=== PATIENT | female | born 1980 | race Caucasian/White ===

== ENCOUNTER 2017-09-16 09:11 | Emergency (ER) | payer OTHER ==
[~2017-09-16] VITALS: Ht 167.6 cm; Wt 93.2 kg
[2017-09-16 09:38] LABS: GLUCOSE,POINT OF CARE 157 MG/DL (70-110)
[2017-09-16 10:00] LABS: AMPHET/METH SCREEN,URINE NEGATIVE (NEGATIVE); BARBITURATE SCREEN, URINE NEGATIVE (NEGATIVE); BENZODIAZEPINES SCREEN,URINE NEGATIVE (NEGATIVE); CANNABINOID SCREEN,URINE POSITIVE (NEGATIVE); COCAINE SCREEN,URINE NEGATIVE (NEGATIVE); METHADONE SCREEN, URINE NEGATIVE (NEGATIVE); OPIATE SCREEN,URINE NEGATIVE (NEGATIVE)
[2017-09-16 10:01] LABS: PHENCYCLIDINE SCREEN,URINE NEGATIVE (NEGATIVE)
[2017-09-16 10:12] LABS: ANION GAP 13 mmol/L (8-16); BASOPHILS % (AUTO) 0.5 % (0.0-2.0); CARBON DIOXIDE 23 mmol/L (22-29); CHLORIDE 105 mmol/L (98-107); EOSINOPHILS % (AUTO) 2.1 % (1.0-6.0); GLOMERULAR FILTR. RATE CALC > 60 mL/min (>60); GLUCOSE,RANDOM 159 mg/dL (70-110); HEMATOCRIT 40.7 % (36-46); HEMOGLOBIN 14.1 g/dL (12.0-16.0); LYMPHOCYTES # (AUTO) 2.1 K/uL (1.0-4.8); LYMPHOCYTES % (AUTO) 26.3 % (22.0-44.0); MEAN CORPUSCULAR HEMOGLOBIN 31.7 pg (26.0-34.0); MEAN CORPUSCULAR HGB CONC 34.7 G/dL (31.0-37.0); MEAN CORPUSCULAR VOLUME 91 fL (80-100); MONOCYTES # (AUTO) 0.5 K/uL (0.1-1.0); MONOCYTES % (AUTO) 6.9 % (2.0-9.0); NEUTROPHILS # (AUTO) 5.1 K/uL (1.8-7.7); NEUTROPHILS % (AUTO) 64.2 % (40.0-70.0); PLATELET COUNT (AUTO) 365 K/uL (150-450); POTASSIUM 3.8 mmol/L (3.5-5.1); RED BLOOD CELL COUNT(AUTO) 4.45 MIL/uL (4.00-5.20); RED CELL DISTRIBUTION WIDTH 12.3 % (11.5-14.5); SODIUM SERUM 141 mmol/L (136-145); UREA NITROGEN, BLOOD 11 mg/dL (7-18)
[2017-09-16 10:17] LABS: ALANINE AMINOTRANSFERASE 28 U/L (12-78); ALBUMIN 3.7 g/dL (3.4-5.0); ALKALINE PHOSPHATASE 79 U/L (46-116); ASPARTATE AMINOTRANSFERASE 21 U/L (15-37); BILIRUBIN,TOTAL 1.3 mg/dL (0.1-1.0); TOTAL PROTEIN, SERUM 7.4 g/dL (6.4-8.2)
[2017-09-16 12:10] VITALS: BP 142/84
== END 2017-09-16 12:34 | disposition home or self-care (01) ==
LOC: EMS 09:13
DX: F31.9 Bipolar disorder, unspecified (principal); E11.9 Type 2 diabetes mellitus without complications; Z90.49 Acquired absence of other specified parts of digestive tract; Z98.890 Other specified postprocedural states
CPT/HCPCS: 36415; 80053; 80307; 82962; 85025; 99284; G0480

== ENCOUNTER 2023-03-16 22:12 | Inpatient (IN) | payer MEDICAID, OTHER ==
[~2023-03-16] VITALS: Ht 167.6 cm; Wt 83.6 kg
[2023-03-16 23:14] LABS: BASOPHILS % (AUTO) 0.9 % (0.0-2.0); EOSINOPHILS % (AUTO) 1.6 % (1.0-6.0); HEMATOCRIT 38.7 % (36-46); LYMPHOCYTES # (AUTO) 1.2 K/uL (1.0-4.8); LYMPHOCYTES % (AUTO) 16.7 % (22.0-44.0); MEAN CORPUSCULAR HEMOGLOBIN 32.3 pg (26.0-34.0); MEAN CORPUSCULAR HGB CONC 33.6 G/dL (31.0-37.0); MEAN CORPUSCULAR VOLUME 96 fL (80-100); MONOCYTES # (AUTO) 0.4 K/uL (0.1-1.0); MONOCYTES % (AUTO) 5.2 % (2.0-9.0); NEUTROPHILS # (AUTO) 5.4 K/uL (1.8-7.7); NEUTROPHILS % (AUTO) 75.6 % (40.0-70.0); PLATELET COUNT (AUTO) 361 K/uL (150-450); RED BLOOD CELL COUNT(AUTO) 4.03 MIL/uL (4.00-5.20); RED CELL DISTRIBUTION WIDTH 12.3 % (11.5-14.5); WHITE BLOOD COUNT (AUTO) 7.2 K/uL (4.5-11.0)
[2023-03-16 23:28] LABS: ANION GAP 12 mmol/L (8-16); CALCIUM, TOTAL 8.5 mg/dL (8.8-10.5); CARBON DIOXIDE 24 mmol/L (22-29); CHLORIDE 102 mmol/L (98-107); CREATININE 0.62 mg/dL (0.60-1.30); GLOMERULAR FILTR. RATE CALC > 60 mL/min (>60); GLUCOSE,RANDOM 98 mg/dL (70-110); POTASSIUM 3.9 mmol/L (3.5-5.1); SODIUM SERUM 138 mmol/L (136-145); UREA NITROGEN, BLOOD 8 mg/dL (7-18)
[2023-03-16 23:34] LABS: ACETAMINOPHEN < 2 mcg/mL (10-30); ALANINE AMINOTRANSFERASE 18 U/L (12-78); ALBUMIN 3.2 g/dL (3.4-5.0); ALKALINE PHOSPHATASE 136 U/L (46-116); ASPARTATE AMINOTRANSFERASE 18 U/L (15-37); BILIRUBIN,TOTAL 1.3 mg/dL (0.1-1.0); TOTAL PROTEIN, SERUM 6.3 g/dL (6.4-8.2)
[2023-03-16 23:49] LABS: ALCOHOL, BLOOD (SERUM) < 3 mg/dL (0-10)
[2023-03-16 23:55] LABS: SALICYLATE < 0.2 mg/dL (2.8-20.0)
[2023-03-17] MEDS ORDERED: ZOLPIDEM TARTRATE 10 MG TABLET PO PRN (01:15)
[2023-03-17] MEDS ORDERED: HALOPERIDOL 5 MG TABLET PO PRN (01:15)
[2023-03-17] MEDS ORDERED: LORazepam 2 MG TABLET PO PRN (01:15)
[2023-03-17 02:00] LABS: COVID AG,FIA SOURCE NASOPHARYNGEAL
[2023-03-17 02:04] LABS: SARS-COV2 (COVID) ANTIGEN,FIA Negative (Negative)
[2023-03-17] MEDS ORDERED: ACETAMINOPHEN 500 MG TABLET PO ONE (02:15)
[2023-03-17 04:05] VITALS: BP 115/77; PULSE 95; RESP 18; TEMP 98.2; O2SAT 97
[2023-03-17 04:20] LABS: APPEARANCE,URINE HAZY (CLEAR); BILIRUBIN,URINE NEGATIVE (NEGATIVE); COLOR,URINE YELLOW (YELLOW); GLUCOSE, URINE (UA) 70-100 mg/dL (NEGATIVE); KETONES,URINE NEGATIVE (NEGATIVE); LEUKOCYTE ESTERASE ,URINE SMALL (NEGATIVE); NITRATE,URINE NEGATIVE (NEGATIVE); OCCULT BLOOD,URINE NEGATIVE (NEGATIVE); PH,URINE 5.5 (5.0-8.0); PH,URINE DRUG SCREEN 5.5 (5.0-8.0); PROTEIN,URINE TRACE mg/dL (NEGATIVE); SPECIFIC GRAVITIY, URINE 1.025 (1.003-1.030); UROBILINOGEN,URINE <=1.0 mg/dL (<=1.0)
[2023-03-17 04:25] LABS: ALCOHOL, URINE DRUG SCREEN NEGATIVE (NEGATIVE); AMPHET/METH SCREEN,URINE POSITIVE (NEGATIVE); BARBITURATE SCREEN, URINE NEGATIVE (NEGATIVE); BENZODIAZEPINES SCREEN,URINE NEGATIVE (NEGATIVE); CANNABINOID SCREEN,URINE NEGATIVE (NEGATIVE); COCAINE SCREEN,URINE NEGATIVE (NEGATIVE); METHADONE SCREEN, URINE NEGATIVE (NEGATIVE); OPIATE SCREEN,URINE NEGATIVE (NEGATIVE); PHENCYCLIDINE SCREEN,URINE NEGATIVE (NEGATIVE)
[2023-03-17 05:04] LABS: BACTERIA,URINE Rare /HPF (None Seen); CALCIUM OXALATE CRYSTALS,UR Few /LPF (None Seen); RBC,URINE 0-2 /HPF (0-2); SQUAMOUS EPITHELIAL CELL,UR Few /LPF (None Seen)
[2023-03-17] MEDS ORDERED: PNEUMOCOCCAL VACCINE POLYVALENT 0.5 ML SYRINGE [PPSV23] IM. ONE (05:15)
[2023-03-17 06:37] LABS: GLUCOMETER DEV NAME(LOC) BV2X.2; GLUCOSE,POINT OF CARE 89 MG/DL (70-110)
[2023-03-17 09:03] VITALS: BP 109/61; PULSE 89; RESP 18; TEMP 97.8; O2SAT 98
[2023-03-17] MEDS ORDERED: TUBERCULIN, PURIFIED PROTEIN DERIVATIVE 5 TU/0.1 ML SYRINGE ID ONE (10:45)
[2023-03-17] MEDS ORDERED: PROMETHAZINE HCL 25 MG TABLET PO PRN (10:45)
[2023-03-17] MEDS ORDERED: MAGNESIUM HYDROXIDE SUSPENSION 30 ML UDCUP PO PRN ×2 (10:45→13:30)
[2023-03-17] MEDS ORDERED: LOPERAMIDE HCL 2 MG CAPSULE PO PRN ×2 (10:45→13:30)
[2023-03-17] MEDS ORDERED: MAG HYDROX/AL HYDROX/SIMETH ES 30 ML SUSPENSION UDCUP PO PRN ×2 (10:45→13:30)
[2023-03-17] MEDS ORDERED: GuaiFENesin/D-METHORPHAN [SUGAR-FREE] 200-20MG/10 ML SYRUP UDCUP PO PRN ×2 (10:45→13:30)
[2023-03-17] MEDS: GABAPENTIN 300 MG CAPSULE PO PRN (11:43)
[2023-03-17] MEDS: HydrOXYzine PAMOATE 50 MG CAPSULE PO PRN (11:43)
[2023-03-17] MEDS ORDERED: ALBUTEROL SULFATE HFA 90 MCG/PUFF 8 GM INHALER IH PRN (13:30)
[2023-03-17] MEDS ORDERED: DOCUSATE SODIUM 100 MG CAPSULE PO PRN (13:30)
[2023-03-17] MEDS ORDERED: ACETAMINOPHEN 325 MG TABLET PO PRN (13:30)
[2023-03-17] MEDS ORDERED: CloNIDine HCL 0.1 MG TABLET PO PRN (13:30)
[2023-03-17] MEDS ORDERED: IBUPROFEN 400 MG TABLET PO PRN (13:30)
[2023-03-17] MEDS ORDERED: NICOTINE 14 MG/24 HOUR PATCH TD PRN (13:30)
[2023-03-17] MEDS ORDERED: PETROLATUM,WHITE 28 GM JELLY TP PRN (13:30)
[2023-03-17] MEDS: THIAMINE 100 MG TABLET PO SCH (16:26)
[2023-03-17] MEDS ORDERED: OLANZapine 5 MG RAPDIS TABLET PO PRN (17:15)
[2023-03-17 17:18] VITALS: BP 109/61; PULSE 89; RESP 18; TEMP 97.8; O2SAT 98
[2023-03-17] MEDS ORDERED: OLANZapine 5 MG RAPDIS TABLET PO SCH (21:00)
[2023-03-17] MEDS: MELATONIN 5 MG TABLET PO SCH ×2 (21:00→21:11)
[2023-03-17] MEDS: BREXPIPRAZOLE 1 MG TABLET PO SCH (21:23)
[2023-03-18 00:55] VITALS: RESP 18
[2023-03-18 00:57] VITALS: RESP 18
[2023-03-18] MEDS: LITHIUM CARBONATE 300 MG CAPSULE PO SCH ×3 (06:35→17:00)
[2023-03-18] MEDS: NALTREXONE HCL 50 MG TABLET PO SCH (08:46)
[2023-03-18] MEDS: ACETAMINOPHEN 325 MG TABLET PO PRN ×3 (08:47→19:30)
[2023-03-18] MEDS: FOLIC ACID 1 MG TABLET PO SCH (08:47)
[2023-03-18] MEDS: HydrOXYzine PAMOATE 50 MG CAPSULE PO PRN (08:47)
[2023-03-18] MEDS: THIAMINE 100 MG TABLET PO SCH ×2 (08:47→17:02)
[2023-03-18] MEDS: BuPROPion HCL XL 150 MG ER TABLET PO SCH (08:47)
[2023-03-18] MEDS: MULTIVITAMINS WITH MINERALS, THERAPEUTIC TABLET PO SCH (08:47)
[2023-03-18] MEDS: LamoTRIgine 100 MG TABLET PO SCH ×2 (08:47→17:02)
[2023-03-18] MEDS: OMEGA-3/DHA/EPA/FISH OIL 1,000 MG CAPSULE PO SCH (08:48)
[2023-03-18] MEDS ORDERED: LamoTRIgine 25 MG TABLET PO SCH (09:00)
[2023-03-18] MEDS ORDERED: FLUoxetine HCL 20 MG CAPSULE PO SCH (09:00)
[2023-03-18 09:04] LABS: HEMOGLOBIN A1C 5.5 % (3.8-5.6)
[2023-03-18 09:30] LABS: CHOL/HDL RATIO 2.6 (3.9-5.7); FREE T4 (FREE THYROXINE) 0.81 ng/dL (0.76-1.46); THYROID STIMULATING HORMONE 0.27 uIU/mL (0.36-3.74)
[2023-03-18 09:51] VITALS: BP 113/73; PULSE 79; RESP 20; TEMP 97.7; O2SAT 98
[2023-03-18 14:48] VITALS: RESP 18; O2SAT 98
[2023-03-18] MEDS: GABAPENTIN 300 MG CAPSULE PO PRN (19:30)
[2023-03-18] MEDS: MELATONIN 5 MG TABLET PO SCH (20:04)
[2023-03-18] MEDS: BREXPIPRAZOLE 1 MG TABLET PO SCH (20:05)
[2023-03-18 20:45] VITALS: BP 119/75; PULSE 96; RESP 18; TEMP 98.1; O2SAT 98
[2023-03-19] MEDS: ACETAMINOPHEN 325 MG TABLET PO PRN (04:40)
[2023-03-19 04:41] VITALS: RESP 18
[2023-03-19 04:42] VITALS: BP 121/79; PULSE 98; RESP 18; TEMP 97.8; O2SAT 98
[2023-03-19 05:37] VITALS: RESP 18
[2023-03-19] MEDS: LITHIUM CARBONATE 300 MG CAPSULE PO SCH ×3 (06:31→16:31)
[2023-03-19 08:55] VITALS: BP 138/59; PULSE 78; RESP 18; TEMP 97.8; O2SAT 96
[2023-03-19] MEDS: FOLIC ACID 1 MG TABLET PO SCH (09:43)
[2023-03-19] MEDS: OMEGA-3/DHA/EPA/FISH OIL 1,000 MG CAPSULE PO SCH (09:43)
[2023-03-19] MEDS: BuPROPion HCL XL 150 MG ER TABLET PO SCH (09:43)
[2023-03-19] MEDS: MULTIVITAMINS WITH MINERALS, THERAPEUTIC TABLET PO SCH (09:43)
[2023-03-19] MEDS: NALTREXONE HCL 50 MG TABLET PO SCH (09:43)
[2023-03-19] MEDS: LamoTRIgine 100 MG TABLET PO SCH ×2 (09:44→16:31)
[2023-03-19] MEDS: THIAMINE 100 MG TABLET PO SCH ×2 (09:44→16:31)
[2023-03-19] MEDS: ONDANSETRON HCL 4 MG TABLET PO PRN (14:25)
[2023-03-19] MEDS: BREXPIPRAZOLE 1 MG TABLET PO SCH (20:50)
[2023-03-19] MEDS: MELATONIN 5 MG TABLET PO SCH (20:50)
[2023-03-19 21:01] VITALS: BP 121/79; PULSE 82; RESP 17; TEMP 97.8; O2SAT 97
[2023-03-20 02:02] VITALS: BP 130/83; PULSE 82; RESP 18; TEMP 97.7; O2SAT 97
[2023-03-20] MEDS: ONDANSETRON HCL 4 MG TABLET PO PRN (02:10)
[2023-03-20] MEDS: ACETAMINOPHEN 325 MG TABLET PO PRN (02:12)
[2023-03-20] MEDS ORDERED: OMEPRAZOLE 20 MG CAPSULE PO SCH (06:30)
[2023-03-20] MEDS: LITHIUM CARBONATE 300 MG CAPSULE PO SCH ×3 (06:51→16:16)
[2023-03-20] MEDS: LamoTRIgine 100 MG TABLET PO SCH ×2 (09:12→16:15)
[2023-03-20] MEDS: OMEGA-3/DHA/EPA/FISH OIL 1,000 MG CAPSULE PO SCH (09:12)
[2023-03-20] MEDS: THIAMINE 100 MG TABLET PO SCH ×2 (09:12→16:15)
[2023-03-20] MEDS: FOLIC ACID 1 MG TABLET PO SCH (09:12)
[2023-03-20] MEDS: HydrOXYzine PAMOATE 50 MG CAPSULE PO PRN (09:12)
[2023-03-20] MEDS: MULTIVITAMINS WITH MINERALS, THERAPEUTIC TABLET PO SCH (09:13)
[2023-03-20] MEDS: NALTREXONE HCL 50 MG TABLET PO SCH (09:13)
[2023-03-20] MEDS: BuPROPion HCL XL 150 MG ER TABLET PO SCH (09:13)
[2023-03-20 10:21] VITALS: BP 140/84; PULSE 70; RESP 20; TEMP 97.7
[2023-03-20] MEDS ORDERED: LAMO-24 PO (15:37)
[2023-03-20] MEDS ORDERED: BUPR-49 PO (15:37)
[2023-03-20] MEDS ORDERED: LITH300C3 PO (15:37)
[2023-03-20] MEDS ORDERED: NALT50TA PO (15:37)
[2023-03-20] MEDS ORDERED: BREX1TAB PO (15:37)
[2023-03-20] MEDS ORDERED: MELA5TAB40 PO (15:37)
[2023-03-20] MEDS ORDERED: OMEG-135 PO (15:37)
[2023-03-20 20:47] VITALS: BP 126/87; PULSE 72; RESP 18; TEMP 97.9; O2SAT 100
[2023-03-21 08:35] LABS: APPEARANCE,URINE CLEAR (CLEAR); BILIRUBIN,URINE NEGATIVE (NEGATIVE); COLOR,URINE YELLOW (YELLOW); GLUCOSE, URINE (UA) NEGATIVE (NEGATIVE); KETONES,URINE NEGATIVE (NEGATIVE); LEUKOCYTE ESTERASE ,URINE NEGATIVE (NEGATIVE); NITRATE,URINE NEGATIVE (NEGATIVE); OCCULT BLOOD,URINE NEGATIVE (NEGATIVE); PROTEIN,URINE NEGATIVE (NEGATIVE); SPECIFIC GRAVITIY, URINE 1.011 (1.003-1.030); UROBILINOGEN,URINE <=1.0 mg/dL (<=1.0)
[2023-03-21 08:48] LABS: ALCOHOL, URINE DRUG SCREEN NEGATIVE (NEGATIVE); AMPHET/METH SCREEN,URINE NEGATIVE (NEGATIVE); BARBITURATE SCREEN, URINE NEGATIVE (NEGATIVE); BENZODIAZEPINES SCREEN,URINE NEGATIVE (NEGATIVE); CANNABINOID SCREEN,URINE NEGATIVE (NEGATIVE); COCAINE SCREEN,URINE NEGATIVE (NEGATIVE); METHADONE SCREEN, URINE NEGATIVE (NEGATIVE); OPIATE SCREEN,URINE NEGATIVE (NEGATIVE); PHENCYCLIDINE SCREEN,URINE NEGATIVE (NEGATIVE)
== END 2023-03-20 16:35 | disposition home or self-care (01) | DRG 753 ==
LOC: EMS 22:12 → B2X 03-17 01:00 → B2S 03-17 21:31
PROVIDERS: ADMIT Psychiatry & Neurology Psychiatry; ATTEND Psychiatry & Neurology Psychiatry
DX: F31.30 Bipolar disorder, current episode depressed, mild or moderate severity, unspecified (principal); E11.9 Type 2 diabetes mellitus without complications; E78.5 Hyperlipidemia, unspecified; G47.00 Insomnia, unspecified; F41.9 Anxiety disorder, unspecified; E80.6 Other disorders of bilirubin metabolism; Z20.822 Contact with and (suspected) exposure to COVID-19; T50.901A Poisoning by unspecified drugs, medicaments and biological substances, accidental (unintentional), initial encounter; Z90.49 Acquired absence of other specified parts of digestive tract; Z90.722 Acquired absence of ovaries, bilateral; Y92.89 Other specified places as the place of occurrence of the external cause; Z59.02 Unsheltered homelessness; Z79.899 Other long term (current) drug therapy
CPT/HCPCS: 80053; 80061; 80307; 81001; 81003; 82962; 83036; 84439; 84443; 84703; 85025; 86592; 93005; 99285; G0480; G0481; Q0162; Q9967

== ENCOUNTER 2024-05-06 20:15 | Emergency (ER) | payer MEDICAID, OTHER ==
[~2024-05-06] VITALS: Ht 167.6 cm; Wt 72.7 kg
[~2024-05-06 20:15] MED LIST: BREX1TAB PO; BUPR-49 PO; LAMO-24 PO; LITH300C3 PO; MELA5TAB40 PO; NALT50TA6 PO; OMEG-135 PO
[2024-05-06 20:25] VITALS: BP 128/75; PULSE 82; RESP 18; TEMP 98.1; O2SAT 98
[2024-05-06 21:44] LABS: BASOPHILS % (AUTO) 1.2 % (0.0-2.0); EOSINOPHILS % (AUTO) 2.2 % (1.0-6.0); HEMATOCRIT 25.5 % (36-46); HEMOGLOBIN 7.9 g/dL (12.0-16.0); LYMPHOCYTES # (AUTO) 2.7 K/uL (1.0-4.8); LYMPHOCYTES % (AUTO) 32.5 % (22.0-44.0); MEAN CORPUSCULAR HEMOGLOBIN 24.1 pg (26.0-34.0); MEAN CORPUSCULAR HGB CONC 30.9 G/dL (31.0-37.0); MEAN CORPUSCULAR VOLUME 78 fL (80-100); MONOCYTES # (AUTO) 0.7 K/uL (0.1-1.0); MONOCYTES % (AUTO) 9.1 % (2.0-9.0); NEUTROPHILS # (AUTO) 4.5 K/uL (1.8-7.7); PLATELET COUNT (AUTO) 421 K/uL (150-450); RED BLOOD CELL COUNT(AUTO) 3.27 MIL/uL (4.00-5.20); RED CELL DISTRIBUTION WIDTH 17.1 % (11.5-14.5); WHITE BLOOD COUNT (AUTO) 8.2 K/uL (4.5-11.0)
[2024-05-06 21:52] LABS: ANION GAP 6 mmol/L (8-16); CALCIUM, TOTAL 8.1 mg/dL (8.8-10.5); CARBON DIOXIDE 29 mmol/L (22-29); CHLORIDE 104 mmol/L (98-107); CREATININE 0.53 mg/dL (0.60-1.30); GLOMERULAR FILTR. RATE CALC > 60 mL/min (>60); GLUCOSE,RANDOM 80 mg/dL (70-110); POTASSIUM 4.2 mmol/L (3.5-5.1); SODIUM SERUM 139 mmol/L (136-145); UREA NITROGEN, BLOOD 11 mg/dL (7-18)
[2024-05-06 22:00] LABS: ALCOHOL, BLOOD (SERUM) < 3 mg/dL (0-10)
[2024-05-06 22:00] LABS: COVID AG,FIA SOURCE NASAL SWAB
[2024-05-06 22:05] LABS: PH,URINE DRUG SCREEN 5.5 (5.0-8.0)
[2024-05-06 22:25] LABS: SARS-COV2 (COVID) ANTIGEN,FIA Negative (Negative)
[2024-05-06 22:27] LABS: ALCOHOL, URINE DRUG SCREEN NEGATIVE (NEGATIVE); AMPHET/METH SCREEN,URINE NEGATIVE (NEGATIVE); BARBITURATE SCREEN, URINE NEGATIVE (NEGATIVE); BENZODIAZEPINES SCREEN,URINE NEGATIVE (NEGATIVE); CANNABINOID SCREEN,URINE NEGATIVE (NEGATIVE); COCAINE SCREEN,URINE NEGATIVE (NEGATIVE); METHADONE SCREEN, URINE NEGATIVE (NEGATIVE); OPIATE SCREEN,URINE NEGATIVE (NEGATIVE); PHENCYCLIDINE SCREEN,URINE NEGATIVE (NEGATIVE)
== END 2024-05-07 00:51 | disposition left against medical advice (07) ==
LOC: EMS 20:15
DX: F32.A Depression, unspecified (principal); E11.9 Type 2 diabetes mellitus without complications; Z90.721 Acquired absence of ovaries, unilateral; Z90.49 Acquired absence of other specified parts of digestive tract; Z79.899 Other long term (current) drug therapy; Z20.822 Contact with and (suspected) exposure to COVID-19
CPT/HCPCS: 99283; 87426; 80048; 85025; 36415; 80307; G0480

== ENCOUNTER 2024-10-19 10:23 | Emergency (ER) | payer OTHER ==
[~2024-10-19] VITALS: Ht 167.6 cm; Wt 65.5 kg
[2024-10-19 10:30] VITALS: TEMP 98.1
[2024-10-19] MEDS ORDERED: SUCR1TAB2 PO (10:33)
[2024-10-19] MEDS ORDERED: DOCU100C33 PO (10:33)
[2024-10-19] MEDS ORDERED: METO10TA3 PO (10:33)
[2024-10-19] MEDS: PANTOPRAZOLE SODIUM 40 MG DR TABLET PO ONE (11:14)
[2024-10-19] MEDS: PB/HYOSCY/ATR/SCOP/LIDO/MAALOX 55 ML BOTTLE PO ONE (11:15)
[2024-10-19] MEDS ORDERED: DIPH-1237 PO (11:15)
[2024-10-19 11:19] LABS: BASOPHILS % (AUTO) 0.6 % (0.0-2.0); EOSINOPHILS % (AUTO) 0.4 % (1.0-6.0); HEMATOCRIT 29.7 % (36-46); HEMOGLOBIN 8.7 g/dL (12.0-16.0); LYMPHOCYTES % (AUTO) 9.5 % (22.0-44.0); MEAN CORPUSCULAR HGB CONC 29.3 G/dL (31.0-37.0); MEAN CORPUSCULAR VOLUME 68 fL (80-100); MONOCYTES # (AUTO) 0.6 K/uL (0.1-1.0); MONOCYTES % (AUTO) 5.8 % (2.0-9.0); NEUTROPHILS # (AUTO) 8.8 K/uL (1.8-7.7); NEUTROPHILS % (AUTO) 83.7 % (40.0-70.0); PLATELET COUNT (AUTO) 666 K/uL (150-450); RED BLOOD CELL COUNT(AUTO) 4.33 MIL/uL (4.00-5.20); WHITE BLOOD COUNT (AUTO) 10.5 K/uL (4.5-11.0)
[2024-10-19 11:27] LABS: ALBUMIN 3.4 g/dL (3.4-5.0); ANION GAP 5 mmol/L (8-16); BILIRUBIN,DIRECT 0.2 mg/dL (0.00-0.20); BILIRUBIN,TOTAL 1.3 mg/dL (0.1-1.0); CALCIUM, TOTAL 9.3 mg/dL (8.8-10.5); CARBON DIOXIDE 29 mmol/L (22-29); CHLORIDE 99 mmol/L (98-107); CREATININE 0.61 mg/dL (0.60-1.30); GLOMERULAR FILTR. RATE CALC > 60 mL/min (>60); GLUCOSE,RANDOM 154 mg/dL (70-110); POTASSIUM 4.1 mmol/L (3.5-5.1); SODIUM SERUM 133 mmol/L (136-145); TOTAL PROTEIN, SERUM 7.8 g/dL (6.4-8.2); UREA NITROGEN, BLOOD 7 mg/dL (7-18)
[2024-10-19 11:32] LABS: HCG,QUANTITATIVE < 1 mIU/mL (0-6); LIPASE 28 U/L (16-77)
[2024-10-19 11:50] LABS: APPEARANCE,URINE HAZY (CLEAR); BILIRUBIN,URINE NEGATIVE (NEGATIVE); COLOR,URINE YELLOW (YELLOW); GLUCOSE, URINE (UA) TRACE mg/dL (NEGATIVE); KETONES,URINE NEGATIVE (NEGATIVE); LEUKOCYTE ESTERASE ,URINE LARGE (NEGATIVE); NITRATE,URINE NEGATIVE (NEGATIVE); OCCULT BLOOD,URINE NEGATIVE (NEGATIVE); PROTEIN,URINE 30-70 mg/dL (NEGATIVE); SPECIFIC GRAVITIY, URINE 1.025 (1.003-1.030)
[2024-10-19 12:02] LABS: RBC,URINE None Seen /HPF (0-2)
[2024-10-19 12:03] LABS: BACTERIA,URINE Many /HPF (None Seen); SQUAMOUS EPITHELIAL CELL,UR Many /LPF (None Seen)
[2024-10-19] MEDS: ONDANSETRON HCL 4 MG/2 ML VIAL IVP ONE (12:46)
[2024-10-19] MEDS: HYDROmorphone HCL 2 MG/ML SYRINGE IVP ONE (12:46)
[2024-10-19] MEDS ORDERED: ONDA-104 PO (13:56)
[2024-10-19] MEDS ORDERED: PANT-31 PO (13:56)
[2024-10-19] MEDS ORDERED: PERCT PO (13:56)
[2024-10-19 14:00] VITALS: BP 125/73; PULSE 79; RESP 17; O2SAT 97
[2024-10-19] MEDS: CefTRIAXone 1 GM/DEXTROSE 50 ML IV ONE (14:18)
== END 2024-10-19 14:53 | disposition home or self-care (01) ==
LOC: EMS 10:43
DX: N39.0 Urinary tract infection, site not specified (principal); R10.13 Epigastric pain; Z88.5 Allergy status to narcotic agent; Z90.49 Acquired absence of other specified parts of digestive tract; Z90.721 Acquired absence of ovaries, unilateral
CPT/HCPCS: 99285; 96365; 76700; 96375; 80048; 80076; 81001; 83690; 84702; 85025; 87086; 86900; 86901; 36415; J1171; J0696; J2405

== ENCOUNTER 2024-10-26 05:44 | Emergency (ER) | payer OTHER ==
[~2024-10-26] VITALS: Ht 167.6 cm; Wt 65.5 kg
[~2024-10-26 05:44] MED LIST changes: -BREX1TAB PO; -BUPR-49 PO; +DIPH-1237 PO; +DOCU100C33 PO; -LAMO-24 PO; -LITH300C3 PO; -MELA5TAB40 PO; +METO10TA3 PO; -NALT50TA6 PO; -OMEG-135 PO; +ONDA-104 PO; +PANT-31 PO; +PERCT PO; +SUCR1TAB2 PO
[2024-10-26 06:46] VITALS: BP 119/74; PULSE 77; RESP 16; TEMP 97.9; O2SAT 99
[2024-10-26 07:03] LABS: APPEARANCE,URINE CLEAR (CLEAR); BILIRUBIN,URINE NEGATIVE (NEGATIVE); COLOR,URINE LIGHT YELLOW (YELLOW); GLUCOSE, URINE (UA) NEGATIVE (NEGATIVE); KETONES,URINE NEGATIVE (NEGATIVE); LEUKOCYTE ESTERASE ,URINE NEGATIVE (NEGATIVE); NITRATE,URINE NEGATIVE (NEGATIVE); OCCULT BLOOD,URINE NEGATIVE (NEGATIVE); PH,URINE 5.5 (5.0-8.0); PROTEIN,URINE NEGATIVE (NEGATIVE); SPECIFIC GRAVITIY, URINE 1.017 (1.003-1.030); UROBILINOGEN,URINE <=1.0 mg/dL (<=1.0)
[2024-10-26] MEDS: DICYCLOMINE HCL 10 MG CAPSULE PO ONE (07:06)
[2024-10-26] MEDS: OxyCODONE HCL/ACETAMINOPHEN 5-325 MG TABLET PO ONE (07:06)
[2024-10-26] MEDS: ONDANSETRON 4 MG TABLET PO ONE (07:07)
[2024-10-26] MEDS ORDERED: DICY-1 PO (07:13)
== END 2024-10-26 07:46 | disposition home or self-care (01) ==
LOC: EMS 05:44
DX: G43.909 Migraine, unspecified, not intractable, without status migrainosus (principal); R10.13 Epigastric pain; F12.90 Cannabis use, unspecified, uncomplicated; Z88.5 Allergy status to narcotic agent; Z87.440 Personal history of urinary (tract) infections; Z90.721 Acquired absence of ovaries, unilateral; Z90.49 Acquired absence of other specified parts of digestive tract
CPT/HCPCS: 99284; 81003; Q0162

== ENCOUNTER 2024-11-03 14:38 | Emergency (ER) | payer OTHER ==
[~2024-11-03] VITALS: Ht 167.6 cm; Wt 68.2 kg
[~2024-11-03 14:38] MED LIST changes: +DICY-1 PO
[2024-11-03 14:39] VITALS: TEMP 98.4
[2024-11-03] MEDS: MAG HYDROX/ALUMINUM HYD/SIMETH 30 ML SUSPENSION UDCUP PO ONE (15:01)
[2024-11-03] MEDS: ONDANSETRON 4 MG TABLET PO ONE (15:02)
[2024-11-03] MEDS: ACETAMINOPHEN 325 MG TABLET PO ONE (15:02)
[2024-11-03 15:13] LABS: BASOPHILS % (AUTO) 0.7 % (0.0-2.0); EOSINOPHILS % (AUTO) 1.1 % (1.0-6.0); HEMATOCRIT 25.7 % (36-46); HEMOGLOBIN 7.6 g/dL (12.0-16.0); LYMPHOCYTES # (AUTO) 1.3 K/uL (1.0-4.8); LYMPHOCYTES % (AUTO) 17.1 % (22.0-44.0); MEAN CORPUSCULAR HEMOGLOBIN 21.2 pg (26.0-34.0); MEAN CORPUSCULAR HGB CONC 29.7 G/dL (31.0-37.0); MEAN CORPUSCULAR VOLUME 71 fL (80-100); MONOCYTES # (AUTO) 0.7 K/uL (0.1-1.0); MONOCYTES % (AUTO) 9.9 % (2.0-9.0); NEUTROPHILS # (AUTO) 5.4 K/uL (1.8-7.7); NEUTROPHILS % (AUTO) 71.2 % (40.0-70.0); PLATELET COUNT (AUTO) 475 K/uL (150-450); RED BLOOD CELL COUNT(AUTO) 3.61 MIL/uL (4.00-5.20); RED CELL DISTRIBUTION WIDTH 21.5 % (11.5-14.5); WHITE BLOOD COUNT (AUTO) 7.5 K/uL (4.5-11.0)
[2024-11-03 15:15] VITALS: BP 113/84; PULSE 74; RESP 16; O2SAT 98
[2024-11-03 15:22] LABS: ANION GAP 9 mmol/L (8-16); CARBON DIOXIDE 27 mmol/L (22-29); CHLORIDE 98 mmol/L (98-107); CREATININE 0.61 mg/dL (0.60-1.30); GLOMERULAR FILTR. RATE CALC > 60 mL/min (>60); GLUCOSE,RANDOM 111 mg/dL (70-110); POTASSIUM 3.9 mmol/L (3.5-5.1); SODIUM SERUM 134 mmol/L (136-145); UREA NITROGEN, BLOOD 10 mg/dL (7-18)
[2024-11-03 15:28] LABS: ALBUMIN 3.1 g/dL (3.4-5.0); BILIRUBIN,DIRECT 0.2 mg/dL (0.00-0.20)
[2024-11-03 15:32] LABS: LIPASE 27 U/L (16-77); TROPONIN I-HIGH SENSITIVITY 5 ng/L (<51)
[2024-11-03] MEDS ORDERED: FAMO20 PO (15:56)
[2024-11-03] MEDS ORDERED: ONDA-104 PO (15:56)
== END 2024-11-03 16:29 | disposition home or self-care (01) ==
LOC: EMS 14:38
DX: R07.2 Precordial pain (principal); D64.9 Anemia, unspecified; F12.90 Cannabis use, unspecified, uncomplicated; Z88.5 Allergy status to narcotic agent; Z87.11 Personal history of peptic ulcer disease; Z90.721 Acquired absence of ovaries, unilateral; Z87.440 Personal history of urinary (tract) infections; Z90.49 Acquired absence of other specified parts of digestive tract
CPT/HCPCS: 99285; 71045; 80048; 80076; 83690; 84484; 84703; 85025; 36415; 93005; Q0162

== ENCOUNTER 2024-11-09 21:28 | Emergency (ER) | payer OTHER ==
[~2024-11-09] VITALS: Ht 167.6 cm; Wt 68.2 kg
[~2024-11-09 21:28] MED LIST changes: +AMLO-257 PO; +DOCU-119 PO; +FAMO20 PO; +FERR325T27 PO; +SUCR1ORA42 PO
[2024-11-09 21:33] VITALS: TEMP 97.9
[2024-11-09 21:58] LABS: EOSINOPHILS % (AUTO) 1.9 % (1.0-6.0); HEMATOCRIT 25.6 % (36-46); HEMOGLOBIN 7.6 g/dL (12.0-16.0); LYMPHOCYTES # (AUTO) 1.6 K/uL (1.0-4.8); LYMPHOCYTES % (AUTO) 18.3 % (22.0-44.0); MEAN CORPUSCULAR HEMOGLOBIN 22.5 pg (26.0-34.0); MEAN CORPUSCULAR HGB CONC 29.7 G/dL (31.0-37.0); MEAN CORPUSCULAR VOLUME 76 fL (80-100); MONOCYTES # (AUTO) 0.7 K/uL (0.1-1.0); MONOCYTES % (AUTO) 8.1 % (2.0-9.0); NEUTROPHILS # (AUTO) 6.1 K/uL (1.8-7.7); NEUTROPHILS % (AUTO) 70.7 % (40.0-70.0); PLATELET COUNT (AUTO) 475 K/uL (150-450); RED BLOOD CELL COUNT(AUTO) 3.38 MIL/uL (4.00-5.20); RED CELL DISTRIBUTION WIDTH 24.7 % (11.5-14.5); WHITE BLOOD COUNT (AUTO) 8.6 K/uL (4.5-11.0)
[2024-11-09 22:09] LABS: ANION GAP 10 mmol/L (8-16); CALCIUM, TOTAL 8.4 mg/dL (8.8-10.5); CARBON DIOXIDE 25 mmol/L (22-29); CHLORIDE 109 mmol/L (98-107); CREATININE 0.49 mg/dL (0.60-1.30); GLOMERULAR FILTR. RATE CALC > 60 mL/min (>60); GLUCOSE,RANDOM 91 mg/dL (70-110); SODIUM SERUM 144 mmol/L (136-145); UREA NITROGEN, BLOOD 10 mg/dL (7-18)
[2024-11-09 22:24] LABS: RBC MORPHOLOGY COMMENT ABNORMAL RBC MORPH
[2024-11-09 22:27] LABS: HCG,QUANTITATIVE 1 mIU/mL (0-6); LIPASE 51 U/L (16-77)
[2024-11-09 23:00] VITALS: BP 141/74; PULSE 68; RESP 18; O2SAT 100
== END 2024-11-09 23:59 | disposition home or self-care (01) ==
LOC: EMS 21:28
DX: R10.13 Epigastric pain (principal); K27.9 Peptic ulcer, site unspecified, unspecified as acute or chronic, without hemorrhage or perforation; F12.90 Cannabis use, unspecified, uncomplicated; Z88.5 Allergy status to narcotic agent; Z90.49 Acquired absence of other specified parts of digestive tract; Z79.899 Other long term (current) drug therapy
CPT/HCPCS: 80048; 83690; 84702; 85025; 99283

== ENCOUNTER 2024-12-12 08:22 | Emergency (ER) | payer OTHER ==
[~2024-12-12] VITALS: Ht 167.6 cm; Wt 68.2 kg
[2024-12-12 08:27] VITALS: TEMP 97.7
[2024-12-12 08:45] LABS: BASOPHILS % (AUTO) 0.9 % (0.0-2.0); EOSINOPHILS % (AUTO) 2.4 % (1.0-6.0); HEMATOCRIT 28.3 % (36-46); HEMOGLOBIN 8.6 g/dL (12.0-16.0); LYMPHOCYTES # (AUTO) 1.4 K/uL (1.0-4.8); LYMPHOCYTES % (AUTO) 22.3 % (22.0-44.0); MEAN CORPUSCULAR HEMOGLOBIN 22.4 pg (26.0-34.0); MEAN CORPUSCULAR HGB CONC 30.4 G/dL (31.0-37.0); MEAN CORPUSCULAR VOLUME 74 fL (80-100); MONOCYTES # (AUTO) 0.6 K/uL (0.1-1.0); MONOCYTES % (AUTO) 9.4 % (2.0-9.0); NEUTROPHILS # (AUTO) 4.2 K/uL (1.8-7.7); PLATELET COUNT (AUTO) 482 K/uL (150-450); RED BLOOD CELL COUNT(AUTO) 3.84 MIL/uL (4.00-5.20); RED CELL DISTRIBUTION WIDTH 23.9 % (11.5-14.5); WHITE BLOOD COUNT (AUTO) 6.5 K/uL (4.5-11.0)
[2024-12-12 08:54] LABS: ANION GAP 9 mmol/L (8-16); CALCIUM, TOTAL 8.2 mg/dL (8.8-10.5); CARBON DIOXIDE 25 mmol/L (22-29); CHLORIDE 106 mmol/L (98-107); CREATININE 0.58 mg/dL (0.60-1.30); GLOMERULAR FILTR. RATE CALC > 60 mL/min (>60); GLUCOSE,RANDOM 98 mg/dL (70-110); POTASSIUM 3.9 mmol/L (3.5-5.1); SODIUM SERUM 139 mmol/L (136-145); UREA NITROGEN, BLOOD 10 mg/dL (7-18)
[2024-12-12 09:01] LABS: RBC MORPHOLOGY COMMENT ABNORMAL RBC MORPH
[2024-12-12] MEDS: ACETAMINOPHEN 500 MG TABLET PO ONE (09:08)
[2024-12-12] MEDS: METOCLOPRAMIDE HCL 10 MG TABLET PO ONE (09:08)
[2024-12-12] MEDS: ONDANSETRON HCL 4 MG/2 ML VIAL IM ONE (09:08)
[2024-12-12] MEDS: PB/HYOSCY/ATR/SCOP/LIDO/MAALOX 55 ML BOTTLE PO ONE (09:08)
[2024-12-12] MEDS ORDERED: BREX1TAB PO (10:01)
[2024-12-12] MEDS ORDERED: [UNRECOGNIZED DRUG - CODE] PO (10:01)
[2024-12-12] MEDS ORDERED: METO10TA3 PO (10:01)
[2024-12-12] MEDS ORDERED: ONDA-104 PO (10:01)
[2024-12-12 10:09] VITALS: BP 124/85; PULSE 72; RESP 16; O2SAT 99
== END 2024-12-12 10:10 | disposition home or self-care (01) ==
LOC: EMS 08:22
DX: K27.9 Peptic ulcer, site unspecified, unspecified as acute or chronic, without hemorrhage or perforation (principal); F12.90 Cannabis use, unspecified, uncomplicated; M79.7 Fibromyalgia; K21.9 Gastro-esophageal reflux disease without esophagitis; Z87.440 Personal history of urinary (tract) infections; Z87.11 Personal history of peptic ulcer disease; Z90.49 Acquired absence of other specified parts of digestive tract; Z90.721 Acquired absence of ovaries, unilateral; Z98.51 Tubal ligation status; Z72.89 Other problems related to lifestyle; Z98.84 Bariatric surgery status; Z88.5 Allergy status to narcotic agent; Z79.899 Other long term (current) drug therapy
CPT/HCPCS: 99284; 80048; 83690; 84703; 85025; 36415; 96372; J2405